=== PATIENT | female | born 1980 | race Caucasian/White ===

== ENCOUNTER 2017-08-09 07:28 | Emergency (ER) | payer OTHER ==
[~2017-08-09] VITALS: Ht 157.5 cm; Wt 69.0 kg
[~2017-08-09 07:28] MED LIST: CIPRO500 MG PO; MELOXICAM15 MG PO; VYVANSE30 MG PO
[2017-08-09 08:26] VITALS: BP 112/70
== END 2017-08-09 08:26 | disposition home or self-care (01) ==
LOC: EME 07:28
PROC: 2W2NX4Z Dressing of Right Upper Leg using Bandage (ICD-10-PCS; principal; 2017-08-09)
DX: T24.111A Burn of first degree of right thigh, initial encounter (principal); X19.XXXA Contact with other heat and hot substances, initial encounter; N94.6 Dysmenorrhea, unspecified
CPT/HCPCS: 99281; 99284